=== PATIENT | female | born 1980 ===

== ENCOUNTER 2018-03-15 14:59 | Emergency (ER) | payer BC ==
[~2018-03-15] VITALS: Ht 167.6 cm; Wt 66.2 kg
[2018-03-15] MEDS ORDERED: TDAP DIPH,PERTUSS,TET VAC/PF 0.5 ML DISP.SYRIN IM ONE ×2 (15:30)
[2018-03-15] MEDS ORDERED: LIDOCAINE HCL 1% 20 ML VIAL IJ ONE (15:45)
--- NOTE | 2018-03-15 16:28 | NUR ---
Patient discharged to home in stable conditon. Written and verbal after care instructions given. Patient verbalizes understanding of instructions.pt with family member.
[2018-03-15 16:32] VITALS: BP 139/71
== END 2018-03-15 16:33 | disposition home or self-care (01) ==
LOC: ER 15:02
DX: S61.213A Laceration without foreign body of left middle finger without damage to nail, initial encounter (principal); W26.8XXA Contact with other sharp object(s), not elsewhere classified, initial encounter; Y93.89 Activity, other specified; Y92.89 Other specified places as the place of occurrence of the external cause; Y99.8 Other external cause status
CPT/HCPCS: 12001; 90471; 90715; 99283; J3490; A4663